=== PATIENT | female | born 1990 | race Caucasian/White ===

== ENCOUNTER 2016-10-16 10:26 | Emergency (ER) | payer OTHER ==
[~2016-10-16] VITALS: Ht 172.7 cm; Wt 89.6 kg
[~2016-10-16 10:26] MED LIST: ALBUAER2 INH; AZIT250T PO; NITR-5 PO; PRENTAB26 PO; PROM25TA PO
[2016-10-16 10:32] VITALS: TEMP 36.9; Ht 172.7 cm; Wt 89.6 kg
[2016-10-16] MEDS ORDERED: PHEN37.585 PO (11:02)
[2016-10-16] MEDS ORDERED: TOPI25TA10 PO (11:02)
[2016-10-16 11:04] LABS: BASO % 0.3 %; BASO ABS # 0.02 K/uL (0-0.2); COMPLETE YES; HEMATOCRIT 41.8 % (37-47); IG% 0.3 %; LYMPH % 29.7 %; LYMPH ABS # 1.79 K/uL (1.2-3.4); MEAN CELL VOLUME 84.6 fL (80-100); MEAN CORPUSCULAR HEMOGLOBIN 28.1 pg (25-34); MEAN CORPUSCULAR HGB CONC 33.3 g/dl (32-36); MEAN PLATELET VOLUME 10.5 fL (7.4-10.4); MONO % 8.8 %; NEUT % 59.9 %; PLATELET COUNT 338 K/uL (130-400); RED BLOOD COUNT 4.94 M/uL (4.2-5.4); WHITE BLOOD COUNT 6.02 K/uL (4.8-10.8)
[2016-10-16 11:24] LABS: ALT/SGPT 23 U/L (12-78); AST/SGOT 15 U/L (15-37); BLOOD UREA NITROGEN 9 mg/dl (7-18); BUN/CREATININE RATIO 11.5 (10-20); CALCIUM 9.1 mg/dl (8.5-10.1); CARBON DIOXIDE 23 mmol/L (21-32); CHLORIDE 112 mmol/L (98-107); CREATININE 0.78 mg/dl (0.60-1.20); GLUCOSE 91 mg/dl (70-99); POTASSIUM 3.2 mmol/L (3.5-5.1); SODIUM 145 mmol/L (136-145)
[2016-10-16 11:34] LABS: ACETAMINOPHEN < 2 ug/ml (10-30); ALKALINE PHOSPHATASE 91 U/L (45-117); THYROID STIMULATING HORMONE 0.868 uIu/ml (0.300-4.500)
[2016-10-16] MEDS ORDERED: ACETAMINOPHEN 500 MG TAB PO STA (12:00)
[2016-10-16 12:18] LABS: URINE APPEARANCE CLEAR (CLEAR); URINE BILIRUBIN NEG (NEG); URINE COLOR YELLOW; URINE NITRITE NEG (NEG); URINE PH 5.5 (4.5-7.5); URINE SPECIFIC GRAVITY 1.022 (1.000-1.030); UROBILINOGEN NEG (NEG)
[2016-10-16 12:29] LABS: MANUAL MICROSCOPIC REQUIRED? NO; REVIEW REQ? NO
[2016-10-16 12:52] LABS: LYME DISEASE AB IGG NEG (NEG)
[2016-10-16 12:57] LABS: BENZODIAZEPINE, URINE NEG (NEG); COCAINE,URINE NEG (NEG); PHENCYCLIDINE, URINE NEG (NEG)
[2016-10-16 13:02] LABS: LYME DISEASE AB IGM EQUIVOCAL (NEG)
[2016-10-16] MEDS ORDERED: LORAZEPAM 1 MG TAB SL STA (13:06)
[2016-10-16] MEDS ORDERED: ATIVAN 1MG HOMEPACK PO ONE (15:15)
[2016-10-16] MEDS ORDERED: HYDR-3126 PO (15:16)
[2016-10-16] MEDS ORDERED: DOXY100C76 PO (15:37)
[2016-10-16 15:46] VITALS: BP 116/65; PULSE 99; O2SAT 97
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
[2016-10-23 05:10] LABS: 18KDIGG BAND NONREACTIVE (NONREACTIVE); 23KDIGG BAND NONREACTIVE (NONREACTIVE); 23KDIGM BAND REACTIVE (NONREACTIVE); 28KDIGG BAND NONREACTIVE (NONREACTIVE); 30KDIGG BAND NONREACTIVE (NONREACTIVE); 39KDIGG BAND NONREACTIVE (NONREACTIVE); 39KDIGM BAND NONREACTIVE (NONREACTIVE); 41KDIGG BAND NONREACTIVE (NONREACTIVE); 41KDIGM BAND NONREACTIVE (NONREACTIVE); 45KDIGG BAND NONREACTIVE (NONREACTIVE); 58KDIGG BAND REACTIVE (NONREACTIVE); 66KDIGG BAND NONREACTIVE (NONREACTIVE); 93KDIGG BAND NONREACTIVE (NONREACTIVE)
[2016-10-27 13:31] LABS: 7-AMINOFLUNITRAZEPAM URINE < 10 ng/mL; NOR-FLUNITRAZEPAM URINE < 10 ng/mL; ROHYPNOL URINE < 10 ng/mL
== END 2016-10-16 15:48 | disposition home or self-care (01) ==
LOC: C.EDB 10:29 → C.EDA 15:48
DX: F39 Unspecified mood [affective] disorder (principal); A69.20 Lyme disease, unspecified; F41.9 Anxiety disorder, unspecified; F32.9 Major depressive disorder, single episode, unspecified; Z83.3 Family history of diabetes mellitus; Z83.79 Family history of other diseases of the digestive system; Z82.49 Family history of ischemic heart disease and other diseases of the circulatory system; Z79.899 Other long term (current) drug therapy

== ENCOUNTER 2017-02-19 14:03 | Emergency (ER) | payer OTHER ==
[~2017-02-19] VITALS: Ht 170.2 cm; Wt 88.2 kg
[~2017-02-19 14:03] MED LIST changes: -ALBUAER2 INH; -AZIT250T PO; -NITR-5 PO; +PHEN37.585 PO; -PRENTAB26 PO; -PROM25TA PO; +TOPI25TA10 PO
[2017-02-19 14:07] VITALS: Ht 170.2 cm; Wt 88.2 kg
[2017-02-19] MEDS ORDERED: SODIUM CHLORIDE 0.9% 1000ML 1,000 ML IV STA (14:18)
[2017-02-19] MEDS ORDERED: MoRPHine SULFATE 10 MG/ML CARP/VIAL IV STA (14:18)
[2017-02-19] MEDS ORDERED: ONDANSETRON INJ 2 MG/ML 2 ML VIAL IV STA (14:18)
[2017-02-19] MEDS ORDERED: LORA-741 PO (14:38)
[2017-02-19] MEDS ORDERED: SUMA25TA PO (14:38)
[2017-02-19] MEDS ORDERED: LISD50CA4 PO (14:38)
[2017-02-19] MEDS ORDERED: MoRPHine SULFATE 2 MG/ML CARP ONE (14:49)
[2017-02-19] MEDS ORDERED: MoRPHine SULFATE 4 MG/ML 1 ML CARP\\VIAL ONE (14:49)
[2017-02-19 14:53] LABS: HEMATOCRIT 37.6 % (37-47); HEMOGLOBIN 12.3 g/dL (12.0-16.0); MEAN CELL VOLUME 83.7 fL (80-100); MEAN CORPUSCULAR HEMOGLOBIN 27.4 pg (25-34); MEAN CORPUSCULAR HGB CONC 32.7 g/dl (32-36); PLATELET COUNT 332 K/uL (130-400); RED CELL DISTRIBUTION WIDTH CV 13.9 % (11.5-14.5); RED CELL DISTRIBUTION WIDTH SD 42.1 fL (36.4-46.3); WHITE BLOOD COUNT 6.85 K/uL (4.8-10.8)
[2017-02-19 14:54] LABS: BASO % 0.3 %; BASO ABS # 0.02 K/uL (0-0.2); EOS % 1.2 %; EOS ABS # 0.08 K/uL (0-0.5); IG# 0.02 K/uL (0.00-0.02); LYMPH % 29.8 %; LYMPH ABS # 2.04 K/uL (1.2-3.4); MEAN PLATELET VOLUME 10.7 fL (7.4-10.4); MONO ABS # 0.55 K/uL (0.11-0.59); NEUT % 60.4 %; NEUT ABS # 4.14 K/uL (1.4-6.5)
[2017-02-19 15:13] LABS: ALBUMIN 3.9 gm/dl (3.4-5.0); CALCIUM 8.7 mg/dl (8.5-10.1); CREATININE 0.66 mg/dl (0.60-1.20); POTASSIUM 3.3 mmol/L (3.5-5.1)
[2017-02-19 15:16] LABS: TOTAL PROTEIN 7.6 gm/dl (6.4-8.2)
[2017-02-19] MEDS ORDERED: LORAZEPAM 2 MG/ML 1 ML VIAL IV STA (15:20)
[2017-02-19] MEDS ORDERED: MoRPHine SULFATE 4 MG/ML 1 ML CARP\\VIAL IV STA (15:20)
[2017-02-19] MEDS ORDERED: KETOROLAC TROMETHAMINE 30 MG/ML VIAL IV STA (15:20)
--- NOTE | 2017-02-19 15:52 | DIAGNOSTIC IMAGING REPORT ---
ABD/PELVIS WITHOUT FOR STONE CLINICAL HISTORY: 26 years-old Female presenting with EVAL R FLANK PAIN. TECHNIQUE: Multidetector CT of the abdomen and pelvis was performed without the use of intravenous contrast. IV contrast: None. A dose lowering technique was used consistent with the principles of ALARA (as low as reasonably achievable). COMPARISON: None. CT DOSE (mGy.cm): The estimated cumulative dose is 1554.71 mGy.cm. 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 Intrauterine device. Lung bases: Minimal basilar opacities, likely atelectasis. Normal heart size. No pericardial or pleural effusion. Liver: Normal morphology. Normal density. Biliary: Mild biliary ductal prominence likely a reservoir effect in the post cholecystectomy state. Gallbladder surgically absent. Pancreas: Normal noncontrast appearance. Spleen: Normal noncontrast appearance. Adrenal glands: Normal noncontrast appearance. Kidneys and ureters: Normal noncontrast appearance. No nephrolithiasis. No hydronephrosis. Normal ureters. Bladder: Mild circumferential bladder wall thickening. No perivesicular fat stranding. Pelvic organs: An intrauterine device is in place. Otherwise normal noncontrast appearance of the uterus and ovaries. Bowel: The cecum is mildly distended with stool in comparison to the remainder of the colon. The appendix is normal. No bowel obstruction. Peritoneal cavity: No free fluid or intraperitoneal gas. Lymph nodes: No gross lymphadenopathy allowing for noncontrast technique. Vasculature: Normal noncontrast appearance. Abdominal wall: Small fat-containing umbilical hernia. Musculoskeletal: Normal. IMPRESSION: 1. Mild circumference of bladder wall thickening could suggest cystitis. Correlate with urinalysis. No evidence of hydronephrosis or nephrolithiasis. 2. The cecum is mildly distended with stool in comparison to the remainder of the colon. No convincing evidence of bowel obstruction or inflammatory change. Electronically signed by: Gadiel Velazquez M.D. 02/19/2017 3:51 PM Dictated Date/Time: 02/19/2017 3:45 PM
--- NOTE | 2017-02-19 17:17 | EMERGENCY ROOM VISIT NOTE ---
History First contact with patient: 14:10 Chief Complaint: FLANK PAIN Stated Complaint: SIDE AND RIB PAIN History of Present Illness Patient is a 26-year-old white female who presents the emergency department accompanied by her boyfriend for evaluation of the abrupt onset of right flank pain. She states her symptoms started acutely while they were out at a restaurant just prior to arrival. She describes a sharp, stabbing pain in the right flank, that does not radiate. She rates her pain a 10/10. She thinks it is "my pancreas." She denies associated nausea, vomiting, diarrhea or urinary symptoms. She's never had pain similar to this previously. She denies any pain in her chest, cough, wheezing or shortness of breath. She is status post cholecystectomy. She has an IUD and is presently menstruating. She reports she was ill with a vomiting and diarrheal illness a couple of weeks ago, but her symptoms had completely resolved. She reports that she took an Ativan today that was prescribed for anxiety. Review of Systems Review of systems as per HPI. All other systems reviewed were negative. 10 systems reviewed. Past Medical/Surgical History Medical Problems: (1) Anxiety (2) Depression (3) Dysmenorrhea (4) Lyme disease (5) Migraines (6) Mood disorder Surgical Problems: (1) History of cholecystectomy Electronic medical records are reviewed and summarized as above/below. See Problem List. Family History Diabetes mellitus Gallbladder disease Heart disease Hypertension Social History Smoking Status: Never Smoker Alcohol Use: occasionally Drug Use: none Marital Status: Housing Status: lives with family Occupation Status: employed Current/Historical Medications Scheduled Lisdexamfetamine Dimesylate (Vyvanse), 50 MG PO DAILY Sumatriptan Succinate (Imitrex), 25 MG PO PRN Topiramate (Topamax), 25 MG PO Q2D Scheduled PRN Lorazepam (Ativan), 0.5 MG PO Q6H PRN for Anxiety Physical Exam Vital Signs Date Time Temp Pulse Resp B/P (MAP) Pulse Ox O2 Delivery O2 Flow Rate FiO2 02/19/17 17:35 36.5 97 18 90/50 99 Room Air 02/19/17 15:49 84 16 98/60 97 Room Air 02/19/17 14:07 36.2 100 18 123/73 96 Room Air Physical Exam CONSTITUTIONAL: Patient is a very dramatic, anxious appearing 26-year-old white female who is awake and alert and appears in moderate distress. EYES: Pupils equal, round, reactive to light and accommodation. EOMs intact without nystagmus. Sclera are anicteric. ENT: Tympanic membranes intact, with normal landmarks. External canals are clear. Oral and nasopharynx are clear. Mucous membranes are moist, no lesions , tongue and gums appear normal. NECK: Supple without lymphadenopathy. No thyromegaly. No meningeal signs. Full active range of motion without discomfort. CARDIOVASCULAR: Regular rate and rhythm, with normal S1 and S2, no murmur or gallop or rub is heard. Peripheral pulses easily palpable. RESPIRATORY: Breath sounds equal and clear to auscultation without wheezes, rales, or rhonchi heard. Full and equal chest expansion without accessory muscle use or retractions. ABDOMEN: Bowel sounds are present. Surgical scars are noted. Abdomen is soft, nondistended, slightly tender in the right upper quadrant and right midabdomen, without guarding, rebound or rigidity. There is no pain in the lower abdomen, no pain over McBurney's point in the right lower quadrant. Positive right CVA tenderness. INTEGUMENTARY: No lesions or rash, normal skin turgor. LYMPH: No lymphadenopathy. Medical Decision & Procedures ER Provider Diagnostic Interpretation: ABD/PELVIS WITHOUT FOR STONE CLINICAL HISTORY: 26 years-old Female presenting with EVAL R FLANK PAIN. TECHNIQUE: Multidetector CT of the abdomen and pelvis was performed without the use of intravenous contrast. IV contrast: None. A dose lowering technique was used consistent with the principles of ALARA (as low as reasonably achievable). COMPARISON: None. CT DOSE (mGy.cm): The estimated cumulative dose is 1554.71 mGy.cm. 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 Intrauterine device. Lung bases: Minimal basilar opacities, likely atelectasis. Normal heart size. No pericardial or pleural effusion. Liver: Normal morphology. Normal density. Biliary: Mild biliary ductal prominence likely a reservoir effect in the post cholecystectomy state. Gallbladder surgically absent. Pancreas: Normal noncontrast appearance. Spleen: Normal noncontrast appearance. Adrenal glands: Normal noncontrast appearance. Kidneys and ureters: Normal noncontrast appearance. No nephrolithiasis. No hydronephrosis. Normal ureters. Bladder: Mild circumferential bladder wall thickening. No perivesicular fat stranding. Pelvic organs: An intrauterine device is in place. Otherwise normal noncontrast appearance of the uterus and ovaries. Bowel: The cecum is mildly distended with stool in comparison to the remainder of the colon. The appendix is normal. No bowel obstruction. Peritoneal cavity: No free fluid or intraperitoneal gas. Lymph nodes: No gross lymphadenopathy allowing for noncontrast technique. Vasculature: Normal noncontrast appearance. Abdominal wall: Small fat-containing umbilical hernia. Musculoskeletal: Normal. IMPRESSION: 1. Mild circumference of bladder wall thickening could suggest cystitis. Correlate with urinalysis. No evidence of hydronephrosis or nephrolithiasis. 2. The cecum is mildly distended with stool in comparison to the remainder of the colon. No convincing evidence of bowel obstruction or inflammatory change. Laboratory Results 02/19/17 14:38 Red Blood Count 4.49, Mean Corpuscular Volume 83.7, Mean Corpuscular Hemoglobin 27.4, Mean Corpuscular Hemoglobin Concent 32.7, Mean Platelet Volume 10.7, Neutrophils (%) (Auto) 60.4, Lymphocytes (%) (Auto) 29.8, Monocytes (%) (Auto) 8.0, Eosinophils (%) (Auto) 1.2, Basophils (%) (Auto) 0.3, Neutrophils # (Auto) 4.14, Lymphocytes # (Auto) 2.04, Monocytes # (Auto) 0.55, Eosinophils # (Auto) 0.08, Basophils # (Auto) 0.02 02/19/17 14:38 Test 02/19/17 14:10 02/19/17 14:38 Urine Color RED Urine Appearance CLOUDY (CLEAR) Urine pH 5.5 (4.5-7.5) Urine Specific [place] 1.010 (1.000-1.030) Urine Protein TRACE (NEG) Urine Glucose (UA) NEG (NEG) Urine Ketones NEG (NEG) Urine Occult Blood 3+ (NEG) Urine Nitrite NEG (NEG) Urine Bilirubin NEG (NEG) Urine Urobilinogen NEG (NEG) Urine Leukocyte Esterase NEG (NEG) Urine RBC >30 /hpf (0-4) Urine WBC >30 /hpf (0-5) Urine Epithelial Cells 10-20 /lpf (0-5) Urine Bacteria 2+ (NEG) White Blood Count 6.85 K/uL (4.8-10.8) Red Blood Count 4.49 M/uL (4.2-5.4) Hemoglobin 12.3 g/dL (12.0-16.0) Hematocrit 37.6 % (37-47) Mean Corpuscular Volume 83.7 fL (80-100) Mean Corpuscular Hemoglobin 27.4 pg (25-34) Mean Corpuscular Hemoglobin Concent 32.7 g/dl (32-36) Platelet Count 332 K/uL (130-400) Mean Platelet Volume 10.7 fL (7.4-10.4) Neutrophils (%) (Auto) 60.4 % Lymphocytes (%) (Auto) 29.8 % Monocytes (%) (Auto) 8.0 % Eosinophils (%) (Auto) 1.2 % Basophils (%) (Auto) 0.3 % Neutrophils # (Auto) 4.14 K/uL (1.4-6.5) Lymphocytes # (Auto) 2.04 K/uL (1.2-3.4) Monocytes # (Auto) 0.55 K/uL (0.11-0.59) Eosinophils # (Auto) 0.08 K/uL (0-0.5) Basophils # (Auto) 0.02 K/uL (0-0.2) RDW Standard Deviation 42.1 fL (36.4-46.3) RDW Coefficient of Variation 13.9 % (11.5-14.5) Immature Granulocyte % (Auto) 0.3 % Immature Granulocyte # (Auto) 0.02 K/uL (0.00-0.02) Anion Gap 9.0 mmol/L (3-11) Est Creatinine Clear Calc Drug Dose 146.0 ml/min Estimated GFR () 140.3 Estimated GFR (Non- 121.1 BUN/Creatinine Ratio 21.8 (10-20) Calcium Level 8.7 mg/dl (8.5-10.1) Total Bilirubin 0.3 mg/dl (0.2-1) Aspartate Amino Transf (AST/SGOT) 15 U/L (15-37) Alanine Aminotransferase (ALT/SGPT) 24 U/L (12-78) Alkaline Phosphatase 81 U/L (45-117) Total Protein 7.6 gm/dl (6.4-8.2) Albumin 3.9 gm/dl (3.4-5.0) Globulin 3.7 gm/dl (2.5-4.0) Albumin/Globulin Ratio 1.1 (0.9-2) Lipase 169 U/L (73-393) Human Chorionic Gonadotropin, Qual NEG (NEG) Medications Administered Medications (Trade) Dose Ordered Sig/Martin Route Start Time Stop Time Status Last Admin Dose Admin Sodium Chloride 1,000 ml @ 999 mls/hr Q1H1M STAT IV 02/19/17 14:18 02/19/17 15:18 DC 02/19/17 14:53 999 MLS/HR Ondansetron HCl (Zofran Inj) 4 mg NOW STAT IV 02/19/17 14:18 02/19/17 14:23 DC 02/19/17 14:53 4 MG Morphine Sulfate (MoRPHine SULFATE INJ) 2 mg STK-MED ONCE .ROUTE 02/19/17 14:49 02/19/17 14:50 DC 02/19/17 14:54 2 MG Morphine Sulfate (MoRPHine SULFATE INJ) 4 mg STK-MED ONCE .ROUTE 02/19/17 14:49 02/19/17 14:50 DC 02/19/17 14:54 4 MG Ketorolac Tromethamine (Toradol Inj) 30 mg NOW STAT IV 02/19/17 15:20 02/19/17 15:21 DC 02/19/17 15:30 30 MG Lorazepam (Ativan Inj) 1 mg NOW STAT IV 02/19/17 15:20 02/19/17 15:21 DC 02/19/17 15:30 1 MG Morphine Sulfate (MoRPHine SULFATE INJ) 4 mg NOW STAT IV 02/19/17 15:20 02/19/17 15:21 DC 02/19/17 15:34 4 MG ED Course The patient was seen and evaluated as above. When I first entered the exam room , patient was in the bathroom getting changed and providing a urine sample and appeared to be in no distress. When she came into the exam room and laid down on the gurney, she was thrashing and rolling around on the gurney. At times, she would lay still and answer questions appropriately. She was able to lay still for the exam. At times she appeared to be slurring her speech, and did offer that she had taken an Ativan earlier in the day. IV lock was initiated. Laboratory studies were collected. Patient provided a urine sample which was grossly contaminated with menstrual blood. Patient was hydrated with normal saline solution. She was initially medicated with morphine 6 mg and Zofran 4 mg IV. She was reassessed frequently as she could be heard in the hallway yelling and crying and screaming out in pain. After about 30 minutes when the first round of medications appeared ineffective , she was given an additional morphine 4 mg IV, Toradol 30 mg IV and Ativan 1 mg IV. At this point, the patient was able to rest comfortably, and was able to tolerate CT scan. She was able to rest comfortably the remainder of her ED stay, and did not require any additional medication needs. The patient was reassessed after she returned from CAT scan, and again was comfortable. Laboratory studies were reviewed with her. White count is not elevated. Electrolytes, liver functions and pancreatic enzymes are unremarkable. Serum hCG is negative. Urinalysis is largely suspicious of contamination. CT did noted some circumferential bladder wall thickening suggestive of cystitis, there is no evidence for hydronephrosis or nephrolithiasis. She also had some increased stool load and distention in the cecum without evidence for bowel obstruction or inflammatory change. CT scan findings were reviewed with the patient. Again, she is not having any UTI symptoms and I do not suspect cystitis. I think her urinalysis is contamination from her menses. Differential diagnoses entertained included UTI , pyelonephritis, renal colic, biliary colic, musculoskeletal pain, shingles, bowel obstruction, perforation, pancreatitis, among others. The patient was encouraged to rest, drink plenty of fluids, and was advised that she could use a stool softener and MiraLAX to help to clear her bowels. She was encouraged she is [id number] medications for discomfort. She is discharged home with her significant other in good condition, rating her pain a 3/10 at discharge. Medical Decision See ED Course. [place] Drug Monitoring Program Search Results: patient reviewed within database, no issues identified Medication Reconcilliation Current Medication List: was personally reviewed by me Blood Pressure Screening Patient's blood pressure: Normal blood pressure Blood pressure disposition: Did not require urgent referral Impression Primary Impression: Right flank pain Departure Information Referrals No Doctor, Assigned (PCP) Patient Instructions [facility] Additional Instructions DO NOT drive, drink alcohol, operate machinery, or perform dangerous activities today. You were given medications in the ER that can affect your ability to safely function or operate a vehicle. Ibuprofen(Motrin, Advil) may be used for fever or pain. Use 600mg every six hours as needed. Take with food. Avoid using more than 2400mg in a 24 hour period. Do not use 2400mg per day for more than three consecutive days without physician direction. Prolonged inappropriate use can lead to stomach upset or ulcers. This is available over the counter and typically comes in 200mg tablets. (AND/OR) Acetaminophen(Tylenol) may be used for fever or pain. Use 1000mg every eight hours as needed. Avoid using more than 3000mg in a 24 hour period. This is available over the counter. Rest and drink plenty of fluids as tolerated. Slow sips of water or sports drinks are recommended instead of large amounts all at once. Continue current medications. Once your stomach is settled start with a clear liquid diet (jello, soup broth, etc.) and then advance as tolerated. You should avoid full, heavy meals for about 24 hrs from the time your symptoms resolved. Return to the ER immediately for worsening or persistent abdominal pain, vomiting, fevers, chest pains, difficulty breathing, black or bloody stools, worsening of your condition, or as needed. Follow up with your primary physician in 1-2 days for a recheck of your current condition.
[2017-02-19 17:35] VITALS: BP 90/50; PULSE 97; TEMP 36.5; O2SAT 99
== END 2017-02-19 17:50 | disposition home or self-care (01) ==
LOC: C.EDB 14:05 → C.EDA 17:50
DX: R10.9 Unspecified abdominal pain (principal); F41.9 Anxiety disorder, unspecified; F32.9 Major depressive disorder, single episode, unspecified; F39 Unspecified mood [affective] disorder; Z83.3 Family history of diabetes mellitus; Z82.49 Family history of ischemic heart disease and other diseases of the circulatory system